=== PATIENT | male | born 1970 | race Hispanic/Latino ===

== ENCOUNTER 2017-12-26 12:31 | Emergency (ER) | payer OTHER ==
[2017-12-26 13:04] VITALS: RESP 18; TEMP 98
--- NOTE | 2017-12-26 13:39 | ED PDOC ---
Arrival/HPI - General Chief Complaint: High Blood Pressure Time Seen by Provider: 12/26/17 13:12 Historian: Patient - History of Present Illness Narrative History of Present Illness (Text): 12/26/17 13:35 47 year old male, whose past medical history includes hypertension ( no current meds,being monitored by PMD) who presents to the ED complaining of intermittent stabbing left chest pain and left arm numbness since this morning. Chest pain is non pressure like Patient states the chest pain radiates to left arm. Patient also notes he has been more stressed than usual. No SI or HI. He denies any recent trauma, venous stasis, recent surgeries, hx of blood clots of family hx of blood clots. No unilateral leg swelling, or hormone use. No hx of malignancy, hemoptysis. Patient denies any nausea, vomiting, headaches, dizziness, SOB, abdominal pain, fever, chills, cough, or any other complaints. 12/26/17 15:13 Time/Duration: 4-6 hours Symptom Onset: Sudden Symptom Course: Unchanged Activities at Onset: Light Context: Home Past Medical History - Provider Review Nursing Documentation Reviewed: Yes - Infectious Disease Hx of Infectious Diseases: None - Cardiac Hx Hypertension: Yes - Pulmonary Hx Respiratory Disorders: No - Psychiatric Hx Substance Use: No - Anesthesia Hx Anesthesia: No Family/Social History - Physician Review Nursing Documentation Reviewed: Yes Family/Social History: Unknown Family HX Smoking Status: Unknown If Ever Smoked Hx Alcohol Use: Yes Frequency of alcohol use: Socially Hx Substance Use: No Allergies/Home Meds Allergies/Adverse Reactions: Allergies No Known Allergies Allergy (Verified 12/26/17 13:02) Home Medications: Home Meds Medication Instructions Recorded Confirmed Emtricitabine/Tenofovir (Tdf) 1 tab PO DAILY 12/26/17 12/26/17 [Truvada 100 mg-150 mg Tablet] Review of Systems - Physician Review All systems were reviewed & negative as marked: Yes - Review of Systems Constitutional: Normal. absent: Fatigue Eyes: Normal ENT: Normal Respiratory: Normal. absent: SOB, Cough Cardiovascular: Chest Pain (radiates to left arm) Gastrointestinal: Normal. absent: Abdominal Pain, Diarrhea, Nausea, Vomiting Genitourinary Male: Normal. absent: Dysuria, Frequency Musculoskeletal: Normal. absent: Back Pain, Neck Pain Skin: Normal. absent: Rash Neurological: Other (numbness to left arm). absent: Headache, Dizziness Endocrine: Normal Hemo/Lymphatic: Normal Psychiatric: Normal Physical Exam Vital Signs Reviewed: Yes Vital Signs Temp Pulse Resp BP Pulse Ox 12/26/17 13:02 98 F 67 18 138/88 98 Temperature: Afebrile Blood Pressure: Normal Pulse: Regular Respiratory Rate: Normal Appearance: Positive for: Well-Appearing, Non-Toxic, Comfortable Pain Distress: None Mental Status: Positive for: Alert and Oriented X 3 - Systems Exam Head: Present: Atraumatic, Normocephalic Pupils: Present: PERRL Extroacular Muscles: Present: EOMI Conjunctiva: Present: Normal Mouth: Present: Moist Mucous Membranes Neck: Present: Normal Range of Motion Respiratory/Chest: Present: Clear to Auscultation, Good Air Exchange. No: Respiratory Distress, Accessory Muscle Use Cardiovascular: Present: Regular Rate and Rhythm, Normal S1, S2. No: Murmurs Abdomen: No: Tenderness, Distention, Peritoneal Signs Back: Present: Normal Inspection Upper Extremity: Present: Normal Inspection. No: Cyanosis, Edema Lower Extremity: Present: Normal Inspection. No: Edema Neurological: Present: GCS=15, CN II-XII Intact, Speech Normal Skin: Present: Warm, Dry, Normal Color. No: Rashes Psychiatric: Present: Alert, Oriented x 3, Normal Insight, Normal Concentration Medical Decision Making ED Course and Treatment: 12/26/17 13:40 Impression: 47 year old male presents to the ED c/o intermittent chest pain and left arm numbness since this morning. Plan: -- CXR -- Troponin -- EKG -- Labs Progress Notes: 12/26/17 14:03 EKG reviewed, shows NSR at 70 bpm. No STEMI 12/26/17 14:31 CXR reviewed, shows: IMPRESSION: No active pulmonary disease. 12/26/17 15:24 troponin negative: Heart score 3: Story +1, Age +1, EKG findings +1. LOW risk: will have pt followup w/ cards outpt [facility]- Low pretest. PERC out. Pain improved w/ motrin. clear for d/c home. - Lab Interpretations Lab Results: 12/26/17 13:38 12/26/17 13:38 Lab Results 12/26/17 13:38: WBC 5.8, RBC 4.62, Hgb 14.6, Hct 39.6 L, MCV 85.7, MCH 31.6, MCHC 36.9, RDW 13.0, Plt Count 207, MPV 9.2, Gran % 60.2, Lymph % (Auto) 32.3, [place] % (Auto) 5.5, Eos % (Auto) 1.7, Baso % (Auto) 0.3, Gran # 3.50, Lymph # ( Auto) 1.9, [place] # (Auto) 0.3, Eos # (Auto) 0.1, Baso # (Auto) 0.02 12/26/17 13:38: Sodium 141, Potassium 4.1, Chloride 105, Carbon Dioxide 27, Anion Gap 14, BUN 16, Creatinine 0.8, Est GFR ( Amer) > 60, Est GFR (Non- Af Amer) > 60, Random Glucose 88, Calcium 9.2, Total Bilirubin 0.8, AST 25, ALT 26, Alkaline Phosphatase 73, Troponin I < 0.01, Total Protein 7.2, Albumin 4.3, Globulin 2.9, Albumin/Globulin Ratio 1.5 - RAD Interpretation Radiology Orders: 12/26/17 13:36 CHEST TWO VIEWS (PA/LAT) [RAD] Stat - EKG Interpretation EKG Interpretation (Text): 12/26/17 15:25 HR 70, RRR. No Stemi, IRBBB Interpreted by ED Physician: Yes Type: 12 lead EKG - Medication Orders Current Medication Orders: Discontinued Medications Ibuprofen (Motrin Tab) 600 mg PO STAT STA Stop: 12/26/17 14:39 - Scribe Statement The provider has reviewed the documentation as recorded by the Cameronibfe Lemus All medical record entries made by the Cameronibfe were at my direction and personally dictated by me. I have reviewed the chart and agree that the record accurately reflects my personal performance of the history, physical exam, medical decision making, and the department course for this patient. I have also personally directed, reviewed, and agree with the discharge instructions and disposition. Disposition/Present on Arrival - Present on Arrival Any Indicators Present on Arrival: No History of DVT/PE: No History of Uncontrolled Diabetes: No Urinary Catheter: No History of Decub. Ulcer: No History Surgical Site Infection Following: None - Disposition Have Diagnosis and Disposition been Completed?: Yes Diagnosis: Chest wall pain Disposition: HOME/ ROUTINE Disposition Time: 15:27 Patient Plan: Discharge Condition: GOOD Discharge Instructions (ExitCare): Chest Pain (ED), Chest Pain (DC), Chest Pain That Is Not Caused by the Heart (DC) Additional Instructions: KIAN MCGRATH, thank you for letting us take care of you today. Your provider was Wilber York and you were treated for chest pain / numbness on his hand. The emergency medical care you received today was directed at your acute symptoms. If you were prescribed any medication, please fill it and take as directed. It may take several days for your symptoms to resolve. Return to the Emergency Department if your symptoms worsen, do not improve, or if you have any other problems. Please contact your doctor or call one of the physicians/clinics you have been referred to that are listed on the Patient Visit Information form that is included in your discharge packet. Bring any paperwork you were given at discharge with you along with any medications you are taking to your follow up visit. Our treatment cannot replace ongoing medical care by a primary care provider outside of the emergency department. Thank you for allowing the [facility] team to be part of your care today. If you had an X-Ray or CT scan: A Radiologist will review the ED reading if any change in treatment is needed we will contact you. If you had a blood, urine, or wound culture: It will take several days for the results, if any change in treatment is needed we will contact you. If you had an STI test: It will take 48 hours for the results. Please call after 1 week if you have not heard back. Referrals: Constantin Pulliam DO [Primary Care Provider] - Follow up with primary Sohan Nieves MD [Staff Provider] - Follow up with primary Forms: [employer] (Yi)
[2017-12-26 13:48] LABS: BASO # 0.02 K/mm3 (0.0-2.0); BASO % 0.3 % (0.0-3.0); EOS # 0.1 (0.0-0.7); EOS % 1.7 % (1.5-5.0); GRAN # 3.5 (1.4-6.5); GRAN % 60.2 % (50.0-68.0); HEMOGLOBIN 14.6 g/dL (14.0-18.0); LYMPH # 1.9 (1.2-3.4); LYMPH % 32.3 % (22.0-35.0); MEAN CELL VOLUME 85.7 fl (80.0-105.0); MEAN CORPUSCULAR HEMOGLOBIN 31.6 pg (25.0-35.0); MEAN CORPUSCULAR HGB CONC 36.9 g/dl (31.0-37.0); MEAN PLATELET VOLUME 9.2 fl (7.0-11.0); MONO # 0.3 (0.1-0.6); MONO % 5.5 % (1.0-6.0); RBC 4.62 10^6/uL (3.5-6.1); WHITE BLOOD COUNT 5.8 10^3/ul (4.5-11.0)
[2017-12-26 14:00] LABS: ALB/GLOB RATIO 1.5 (1.1-1.8); ALBUMIN 4.3 g/dL (3.0-4.8); ALT/SGPT 26 U/L (7-56); AST/SGOT 25 U/L (17-59); BLOOD UREA NITROGEN 16 mg/dL (7-21); CALCIUM 9.2 mg/dL (8.4-10.5); GFR AFRICAN-AMERICAN > 60; GFR NON-AFRICAN AMERICAN > 60
[2017-12-26 14:11] LABS: TROPONIN I < 0.01 ng/mL
--- NOTE | 2017-12-26 15:20 | CARD ---
APPROVED REPORT Date of service: 12/26/2017 EKG Measurement Heart [id number] <Conclusion> Normal sinus rhythm Possible Left atrial enlargement Incomplete right bundle branch block Septal infarct, age undetermined Abnormal ECG
[2017-12-26 15:34] VITALS: BP 153/98; PULSE 82; O2SAT 97
== END 2017-12-26 15:36 | disposition home or self-care (01) ==
LOC: ED 12:31
DX: R07.89 Other chest pain (principal); I10 Essential (primary) hypertension